=== PATIENT | female | born 1995 | race African-American/Black ===

== ENCOUNTER 2017-03-01 19:04 | Emergency (ER) | payer SELFPAY ==
[~2017-03-01] VITALS: Ht 172.7 cm; Wt 65.5 kg
[~2017-03-01 19:04] MED LIST: FERR325C PO; PRENAT PO
[2017-03-01 19:10] VITALS: Ht 172.7 cm; Wt 65.5 kg
== END 2017-03-01 22:29 | disposition left against medical advice (07) ==
LOC: E/R 19:04
DX: Z53.21 Procedure and treatment not carried out due to patient leaving prior to being seen by health care provider (principal)

== ENCOUNTER 2017-03-10 14:34 | Inpatient (IN) | payer MEDICAID ==
[~2017-03-10] VITALS: Ht 175.3 cm; Wt 66.9 kg
[2017-03-10 14:40] VITALS: Ht 175.3 cm; Wt 66.9 kg
[2017-03-10] MEDS ORDERED: SODIUM CHLORIDE 0.9% 1L BAG IV* STA (15:07)
[2017-03-10] MEDS ORDERED: KETOROLAC 30 MG INJ IV STA (15:07)
[2017-03-10 15:59] LABS: ADD SCAN DIFF NO
[2017-03-10 16:07] LABS: ABNORMAL IP MESSAGE 1; BASOPHILS % 0.2 % (0.0-2.0); EOSINOPHILS # 0.1 10^3/ul (0.0-0.5); EOSINOPHILS % 0.4 % (0.0-7.0); HEMATOCRIT 34.1 % (37.0-47.0); HEMOGLOBIN 11.1 g/dl (12.0-16.0); LYMPHOCYTES # 2.8 10^3/ul (0.8-2.9); LYMPHOCYTES % 16.4 % (18.0-55.0); MEAN CORPUSCULAR HEMOGLOBIN 25.1 pg (29.0-33.0); MEAN CORPUSCULAR HGB CONC 32.6 g/dl (32.0-37.0); MEAN PLATELET VOLUME 10.3 fl (7.4-10.4); MONOCYTE # 1.8 10^3/ul (0.3-0.9); MONOCYTES % 10.8 % (0.0-13.0); NEUTROPHIL # 12.1 10^3/ul (1.6-7.5); NEUTROPHILS % 71.6 % (30.0-74.0); PLATELET COUNT 439 10^3/UL (140-415); RED BLOOD COUNT 4.43 10^6/ul (4.20-5.40); RED CELL DISTRIBUTION WIDTH 14.8 % (11.5-14.5); WHITE BLOOD COUNT 16.9 10^3/ul (4.8-10.8)
[2017-03-10 16:10] LABS: INR 1.13; PROTIME 14.5 Sec (12.2-14.2); PT RATIO 1.1
[2017-03-10 16:11] LABS: PARTIAL THROMBOPLASTIN TIME 29.3 Sec (25.0-35.0)
[2017-03-10 16:14] LABS: ALBUMIN 4.1 g/dl (3.3-4.9); CHLORIDE 99 mmol/L (97-110)
[2017-03-10 16:15] LABS: SODIUM 139 mmol/L (135-144)
[2017-03-10 16:17] LABS: ALANINE AMINOTRANSFERASE 26 IU/L (13-69); ALKALINE PHOSPHATASE 75 IU/L (42-121); ANION GAP 15 (8-16); ASPARTATE AMINO TRANSFERASE 18 IU/L (15-46); BILIRUBIN,INDIRECT 1.1 mg/dl (0-1.1); BILIRUBIN,TOTAL 1.1 mg/dl (0.2-1.3); BLOOD UREA NITROGEN 6 mg/dl (7-20); CALCIUM 9.4 mg/dl (8.4-10.2); CARBON DIOXIDE 28 mmol/L (21-31); CREATININE 0.68 mg/dl (0.44-1.00); GLUCOSE 89 mg/dl (70-220); TOTAL PROTEIN 7.8 g/dl (6.1-8.1)
[2017-03-10 16:22] LABS: ADD UMIC YES; URINE BILIRUBIN (Dip) NEGATIVE (NEGATIVE); URINE BLOOD (Dip) 1+ (NEGATIVE); URINE GLUCOSE (Dip) NEGATIVE (NEGATIVE); URINE KETONES (Dip) NEGATIVE (NEGATIVE); URINE LEUKOCYTE ESTERASE (Dip) 3+ (NEGATIVE); URINE NITRITE (Dip) POSITIVE (NEGATIVE); URINE TOTAL PROTEIN (Dip) 1+ (NEGATIVE); URINE UROBILINOGEN (Dip) 2.0 E.U./dL (0.1-1.0)
[2017-03-10 16:26] VITALS: TEMP 98.3
[2017-03-10 16:30] LABS: URINE COLOR YELLOW (YELLOW)
[2017-03-10 16:33] LABS: BACTERIA,URINE MANY; SQUAMOUS EPITHELIAL CELL,UR MODERATE
[2017-03-10 16:38] LABS: POTASSIUM 2.9 mmol/L (3.5-5.1); TROPONIN-I < 0.012 ng/ml (0.00-0.12)
--- NOTE | 2017-03-10 16:40 | RADRPT ---
PROCEDURE: XR Chest. CLINICAL INDICATION: Possible Sepsis TECHNIQUE: Single frontal view of the chest was obtained. COMPARISON: None. FINDINGS: The cardiomediastinal silhouette is normal size. Pulmonary vasculature is within normal limits. Th e lungs are clear. No signs of pleural fluid or pneumothorax are seen. The osseous structures and soft tissues are unre markable. IMPRESSION: No definite focal consolidation or edema. RPTAT: HBST .Uzair Jeffries MD, MD Date Time Electronically viewed and signed by .Uzair Jeffries MD, MD on 03/10/2017 16:39 .T/
[2017-03-10] MEDS ORDERED: POTASSIUM CHLORIDE (SR) 20 MEQ TAB PO STA (16:42)
[2017-03-10] MEDS ORDERED: ACETAMINOPHEN 500 MG TAB PO STA (16:49)
[2017-03-10] MEDS ORDERED: ONDANSETRON 4 MG INJ IV STA (16:49)
[2017-03-10] MEDS ORDERED: POTASSIUM CHLORIDE 20 MEQ in SOD CHLORIDE 0.9% 100 ML IVPB ONE (17:00)
[2017-03-10] MEDS ORDERED: CEFTRIAXONE 1 GM/50 ML (PMX) 50 ML IVPB ONE (17:00)
[2017-03-10] MEDS ORDERED: SOD CHLORIDE 0.9% 1,000 ML IV SCH ×2 (17:18→23:30)
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
[2017-03-10] MEDS ORDERED: ONDANSETRON 4 MG INJ IV PRN ×2 (17:30→23:30)
[2017-03-10] MEDS ORDERED: ACETAMINOPHEN 325 MG TAB PO PRN ×2 (17:30→23:30)
[2017-03-10] MEDS ORDERED: MAGNESIUM SULFATE 1 GM/D5W 100 ML IVPB ONE (17:30)
--- NOTE | 2017-03-10 17:52 | RADRPT ---
PROCEDURE: CT Abdomen and Pelvis without contrast. CLINICAL INDICATION: Left flank pain. TECHNIQUE: Routine tomographic images of the abdomen and pelvis were obtained from the domes of th e diaphragm to the symphysis pubis. The patient was scanned withoutoral or intravenous contrast. C oronal and sagittal reformatted images were obtained from the axial source images. Images were revie wed on a high-resolution PACS workstation. One or more of the following dose reduction techniques were used: Automated exposure control, Adjust ment of the mA and/or kV according to patient size, and/or Use of iterative reconstruction technique . The total exam CTDI equals 6.16 mGy and the total exam DLP equals 362.20 mGy-cm. COMPARISON: None. FINDINGS: The visualized portions of the lung bases are clear. Evaluation of the intra-abdominal solid org ans is limited on this noncontrast examination. The liver appears normal in size. There is no intr a or extrahepatic biliary dilatation. The gallbladder is unremarkable by CT criteria. The spleen, pancreas, and adrenal glands are unremarkable. The kidneys are symmetric in size. No renal, ureteral, or bladder calculi are identified. There is mild left hydronephrosis and hydroureter. The urinary bladder is grossly unremarkable. The bowel demonstrates normal course and caliber. There is no evidence of bowel obstruction. The appendix is normal in appearance. There is small free fluid in the pelvis. No intraperitoneal free air or abscess is identified. The uterus and adnexa are unremarkable. The aorta is normal in calib er. No retroperitoneal, mesenteric, or inguinal lymphadenopathy is identified. The osseous structures are unremarkable. No significant subcutaneous soft tissue abnormalities are seen. IMPRESSION: 1. Limited, noncontrast CT the abdomen and pelvis. There is mild left hydronephrosis and hydrouret er. No renal, ureteral or bladder calculi are seen. Findings may reflect recently passed stone or ascending urinary tract infection such as pyelonephritis. Clinical correlation and correlation with urinalysis is recommended. 2. Small free fluid in the pelvis. RPTAT: HH .Poornima Beach MD, MD Date Time Electronically viewed and signed by .Poornima Beach MD, on 03/10/2017 17:52 .Neda
[2017-03-10 19:19] VITALS: PULSE 74
[2017-03-10 20:23] VITALS: BP 124/76; RESP 20
[2017-03-10 20:44] VITALS: PULSE 76
[2017-03-10] MEDS ORDERED: morphine 10 MG INJ IM PRN (23:30)
[2017-03-10] MEDS ORDERED: VANCOMYCIN IV PER PHARMACY XX SCH (23:30)
[2017-03-10 23:35] VITALS: BP 112/58; PULSE 78; RESP 16
[2017-03-11] VITALS (8 sets, daily range): BP systolic 102–115; BP diastolic 56–65; PULSE 59–96; RESP 16–19
[2017-03-11 00:04] LABS: ABNORMAL IP MESSAGE 1; ADD SCAN DIFF NO; HEMATOCRIT 29.1 % (37.0-47.0); HEMOGLOBIN 9.6 g/dl (12.0-16.0); MEAN CORPUSCULAR VOLUME 75.8 fl (72.0-104.0); MEAN PLATELET VOLUME 9.3 fl (7.4-10.4); PLATELET COUNT 335 10^3/UL (140-415); RED BLOOD COUNT 3.84 10^6/ul (4.20-5.40); RED CELL DISTRIBUTION WIDTH 14.8 % (11.5-14.5); WHITE BLOOD COUNT 13.4 10^3/ul (4.8-10.8)
[2017-03-11 00:21] LABS: CALCIUM 8.6 mg/dl (8.4-10.2); CREATININE 0.53 mg/dl (0.44-1.00); MAGNESIUM 2.2 mg/dl (1.7-2.5); POTASSIUM 3.7 mmol/L (3.5-5.1)
[2017-03-11] MEDS: CEFEPIME 1GM/50 ML (PMX) 50 ML IVPB SCH ×2 (00:58→09:34)
[2017-03-11] MEDS ORDERED: VANCOMYCIN 1.5 GM in SOD CHLORIDE 0.9% 250 ML IVPB SCH (01:00)
[2017-03-11 01:48] LABS: LYMPHOCYTES # 2.7 10^3/ul (0.8-2.9); MONOCYTE # 0.7 10^3/ul (0.3-0.9); NEUTROPHIL # 10.1 10^3/ul (1.6-7.5)
[2017-03-11] MEDS ORDERED: SERT25TA PO (07:54)
[2017-03-11 08:03] LABS: ALBUMIN 3.1 g/dl (3.3-4.9); ALBUMIN/GLOBULIN RATIO 1.03; BILIRUBIN,INDIRECT 0.5 mg/dl (0-1.1); BILIRUBIN,TOTAL 0.5 mg/dl (0.2-1.3); CALCIUM 8.8 mg/dl (8.4-10.2); CREATININE 0.52 mg/dl (0.44-1.00); POTASSIUM 3.8 mmol/L (3.5-5.1); TOTAL PROTEIN 6.1 g/dl (6.1-8.1)
[2017-03-11] MEDS ORDERED: SERTRALINE 50 MG TAB PO SCH (10:00)
[2017-03-11] MEDS ORDERED: VANCOMYCIN 1.25 GM in SOD CHLORIDE 0.9% 250 ML IVPB SCH (13:00)
[2017-03-11] MEDS ORDERED: CEFEPIME 1GM/50 ML (PMX) 50 ML IVPB SCH (14:00)
[2017-03-11] MEDS ORDERED: VANCOMYCIN 1 GM in NS 250 ML IVPB SCH (21:00)
== END 2017-03-11 13:10 | disposition left against medical advice (07) | DRG 872 ==
LOC: E/R 14:34 → MS4 17:19
PROVIDERS: ADMIT Internal Medicine; ATTEND Internal Medicine
DX: A41.9 Sepsis, unspecified organism (principal); N12 Tubulo-interstitial nephritis, not specified as acute or chronic; E87.6 Hypokalemia; R07.89 Other chest pain; V89.2XXA Person injured in unspecified motor-vehicle accident, traffic, initial encounter
CPT/HCPCS: 36415; 71010; 74176; 80048; 80053; 81001; 81003; 83605; 83735; 84100; 84484; 84703; 85025; 85610; 85730; 87040; 87081; 87086; 93005; 96374; 96375; J0692; J0696; J1885; J3370; J3475; J3480; J7030; J7050

== ENCOUNTER 2017-07-29 19:09 | Emergency (ER) | payer MEDICAID ==
[~2017-07-29] VITALS: Ht 162.6 cm; Wt 65.5 kg
[~2017-07-29 19:09] MED LIST changes: +SERT25TA PO
[2017-07-29 19:11] VITALS: Ht 162.6 cm; Wt 65.5 kg
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
[2017-07-29] MEDS ORDERED: CEFTRIAXONE 250 MG INJ IM ONE (21:00)
[2017-07-29] MEDS ORDERED: AZITHROMYCIN 250 MG TAB PO ONE (21:00)
[2017-07-29] MEDS ORDERED: DOXY100T20 PO (21:12)
== END 2017-07-29 21:42 | disposition home or self-care (01) ==
LOC: FTE 19:09
DX: A64 Unspecified sexually transmitted disease (principal); F17.210 Nicotine dependence, cigarettes, uncomplicated
CPT/HCPCS: 96372; J0696; Z7502; Z7610

== ENCOUNTER 2018-01-19 03:39 | Emergency (ER) | END 2018-01-19 08:48 | disposition left against medical advice (07) ==